=== PATIENT | female | born 1960 | race African-American/Black ===

== ENCOUNTER 2021-03-03 08:13 | Emergency (ER) | payer OTHER ==
[2021-03-03] MEDS ORDERED: ONDANSETRON ODT4 MG PO (11:19)
== END 2021-03-03 11:50 | disposition home or self-care (01) ==
LOC: FER 08:13
DX: K52.9 Noninfective gastroenteritis and colitis, unspecified (principal); R55 Syncope and collapse; R53.1 Weakness; I10 Essential (primary) hypertension; J45.909 Unspecified asthma, uncomplicated; G89.29 Other chronic pain; Z88.2 Allergy status to sulfonamides; Z88.0 Allergy status to penicillin; Z88.8 Allergy status to other drugs, medicaments and biological substances; Z88.1 Allergy status to other antibiotic agents; Z91.040 Latex allergy status; Z79.891 Long term (current) use of opiate analgesic
CPT/HCPCS: 74022; 93005; J2405; J7030